=== PATIENT | female | born 1995 | race Hispanic/Latino ===

== ENCOUNTER 2023-03-02 12:02 | Emergency (ER) | payer OTHER ==
[~2023-03-02] VITALS: Ht 160 cm; Wt 78.0 kg
[~2023-03-02 12:02] MED LIST: FLEXERIL5 MG PO; NAPROSYN375 MG PO; NO MEDS
[2023-03-02] MEDS ORDERED: MEDROL4 M1 PO (16:25)
[2023-03-02] MEDS ORDERED: IBUPROFEN600 MG PO (16:26)
[2023-03-02 16:37] VITALS: BP 118/72
== END 2023-03-02 16:48 | disposition home or self-care (01) ==
LOC: ED 12:02
DX: M54.41 Lumbago with sciatica, right side (principal)